=== PATIENT | female | born 1995 | race Caucasian/White ===

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

== ENCOUNTER 2018-11-27 19:34 | Emergency (ER) | payer MEDICAID, BC ==
[2018-11-27 19:46] VITALS: BP 136/93
--- NOTE | 2018-11-27 19:47 | EDM.PDOC ---
ED HPI GENERAL MEDICAL PROBLEM - General Chief Complaint: Back Pain or Injury Stated Complaint: HEADACHE/LOWER BACK Time Seen by Provider: 11/27/18 19:47 - History of Present Illness INITIAL COMMENTS - FREE TEXT/NARRATIVE: 23-year-old female presents to the emergency room with low back pain nausea hard time eating and drinking and dysuria Is been going on for the last several days she has not been vomiting but she just is quite nauseated. She has some low back discomfort but no specific abdominal pain she has no loss of bowel or bladder control. No significant abdominal pain she's tried some ibuprofen for this. Lower Back Pain Score (Numeric/FACES): 4 - Related Data Allergies Allergy/AdvReac Type Severity Reaction Status Date / Time amoxicillin Allergy Rash Verified 11/27/18 19:46 Penicillins Allergy Rash Verified 10/28/16 22:16 Home Meds: Home Meds Ondansetron [Zofran ODT] 4 mg PO Q6H PRN #6 tab.dis 11/27/18 [Rx] Past Medical History - Past Health History Medical/Surgical History: Denies Medical/Surgical History [employer] History: Reports: Social & Family History - Caffeine Use Caffeine Use: Reports: None ED ROS GENERAL - Review of Systems Review Of Systems: See Below Constitutional: Reports: Malaise, Weakness. Denies: No Symptoms, Fever, Chills HEENT: Reports: No Symptoms Respiratory: Reports: No Symptoms Cardiovascular: Reports: No Symptoms GI/Abdominal: Reports: Nausea. Denies: Constipation, Diarrhea, Vomiting : Reports: Dysuria, Flank Pain. Denies: No Symptoms Musculoskeletal: Reports: No Symptoms Skin: Reports: No Symptoms Neurological: Reports: No Symptoms Psychiatric: Reports: No Symptoms ED EXAM,LOWER BACK PAIN/INJURY - Physical Exam Exam: See Below Exam Limited By: No Limitations General Appearance: Alert, No Apparent Distress Ears: Normal External Exam, Normal Canal, Hearing Grossly Normal Nose: Normal Inspection, Normal Mucosa, No Blood Throat/Mouth: Normal Inspection, Normal Lips, Normal Teeth Head: Atraumatic, Normocephalic, Facial Swelling Neck: Normal Inspection, Supple, Non-Tender. No: Lymphadenopathy (L), Lymphadenopathy (R) Respiratory/Chest: No Respiratory Distress, Lungs Clear, Normal Breath Sounds, No Accessory Muscle Use Rectal (Female) Exam: Normal Exam Back Exam: Normal Inspection, CVA Tenderness (R) Extremities: Normal Inspection Neurological: Alert, Normal Mood/Affect Psychiatric: Normal Affect, Normal Mood Skin Exam: Warm, Dry, Intact Lymphatic: No Adenopathy Course - Vital Signs Last Recorded V/S: Last Vital Signs Temp 38.1 C 11/27/18 19:43 Pulse 144 H 11/27/18 19:43 Resp 16 11/27/18 19:43 BP 136/93 H 11/27/18 19:43 Pulse Ox 97 11/27/18 19:43 - Orders/Labs/Meds Orders: Active Orders 24 hr Category Date Time Status EKG Documentation Completion [RC] STAT Care 11/27/18 20:02 Active Lactated Ringers [Ringers, Lactated] 1,000 ml Med 11/27/18 21:19 Active IV .BOLUS Medication Orders Lactated Ringer's (Ringers, Lactated) 1,000 mls @ 999 mls/hr IV .BOLUS ONE Stop: 11/27/18 22:19 Last Admin: 11/27/18 21:26 Dose: 999 mls/hr Labs: Laboratory Tests 11/27/18 11/27/18 11/27/18 Range/Units 20:10 20:10 20:10 WBC 9.75 (3.98-10.04) K/mm3 RBC 5.02 (3.98-5.22) M/mm3 Hgb 15.6 (11.2-15.7) gm/L Hct 44.9 (34.1-44.9) % MCV 89.4 (79.4-94.8) fl MCH 31.1 (25.6-32.2) pg MCHC 34.7 (32.2-35.5) g/dl RDW Std Deviation 39.8 (36.4-46.3) fL Plt Count 188 D (182-369) K/mm3 MPV 11.0 (9.4-12.3) fl Neutrophils % (Manual) 94 H (40-60) % Band Neutrophils % 0 (0-10) % Lymphocytes % (Manual) 5 L (20-40) % Atypical Lymphs % 0 % Monocytes % (Manual) 1 L (2-10) % Eosinophils % (Manual) 0 L (0.7-5.8) % Basophils % (Manual) 0 L (0.1-1.2) Platelet Estimate Adequate RBC Morph Comment Normal Sodium 138 (136-145) mEq/L Potassium 3.5 (3.5-5.1) mEq/L Chloride 102 (98-107) mEq/L Carbon Dioxide 25 (21-32) mEq/L Anion Gap 14.5 (5-15) BUN 11 (7-18) mg/dL Creatinine 0.8 (0.55-1.02) mg/dL Est Cr Clr Drug Dosing 95.59 mL/min Estimated GFR (MDRD) > 60 (>60) mL/min BUN/Creatinine Ratio 13.8 L (14-18) Glucose 98 (74-106) mg/dL Calcium 8.7 (8.5-10.1) mg/dL TSH 3rd Generation 0.812 (0.358-3.74) uIU/mL Urine Color (Yellow) Urine Appearance (Clear) Urine pH (5.0-8.0) Ur Specific [place] (1.005-1.030) Urine Protein (Negative) Urine Glucose (UA) (Negative) Urine Ketones (Negative) Urine Occult Blood (Negative) Urine Nitrite (Negative) Urine Bilirubin (Negative) Urine Urobilinogen (0.2-1.0) Ur Leukocyte Esterase (Negative) Urine RBC (0-5) /hpf Urine WBC (0-5) /hpf Ur Squamous Epith Cells (0-5) /hpf Urine Bacteria (FEW) /hpf Urine Mucus (FEW) /hpf Urine HCG, Qual (NEGATIVE) 11/27/18 11/27/18 Range/Units 20:45 20:45 WBC (3.98-10.04) K/mm3 RBC (3.98-5.22) M/mm3 Hgb (11.2-15.7) gm/L Hct (34.1-44.9) % MCV (79.4-94.8) fl MCH (25.6-32.2) pg MCHC (32.2-35.5) g/dl RDW Std Deviation (36.4-46.3) fL Plt Count (182-369) K/mm3 MPV (9.4-12.3) fl Neutrophils % (Manual) (40-60) % Band Neutrophils % (0-10) % Lymphocytes % (Manual) (20-40) % Atypical Lymphs % % Monocytes % (Manual) (2-10) % Eosinophils % (Manual) (0.7-5.8) % Basophils % (Manual) (0.1-1.2) Platelet Estimate RBC Morph Comment Sodium (136-145) mEq/L Potassium (3.5-5.1) mEq/L Chloride (98-107) mEq/L Carbon Dioxide (21-32) mEq/L Anion Gap (5-15) BUN (7-18) mg/dL Creatinine (0.55-1.02) mg/dL Est Cr Clr Drug Dosing mL/min Estimated GFR (MDRD) (>60) mL/min BUN/Creatinine Ratio (14-18) Glucose (74-106) mg/dL Calcium (8.5-10.1) mg/dL TSH 3rd Generation (0.358-3.74) uIU/mL Urine Color Yellow (Yellow) Urine Appearance Clear (Clear) Urine pH 8.5 H (5.0-8.0) Ur Specific [place] 1.020 (1.005-1.030) Urine Protein Trace H (Negative) Urine Glucose (UA) Negative (Negative) Urine Ketones 1+ H (Negative) Urine Occult Blood Negative (Negative) Urine Nitrite Negative (Negative) Urine Bilirubin Negative (Negative) Urine Urobilinogen 1.0 (0.2-1.0) Ur Leukocyte Esterase Negative (Negative) Urine RBC 0-5 (0-5) /hpf Urine WBC 0-5 (0-5) /hpf Ur Squamous Epith Cells 5-10 H (0-5) /hpf Urine Bacteria Few (FEW) /hpf Urine Mucus Moderate H (FEW) /hpf Urine HCG, Qual Negative (NEGATIVE) Meds: Medications Generic Name Dose Route Start Last Admin Trade Name Freq PRN Reason Stop Dose Admin Lactated Ringer's 1,000 mls @ 999 mls/hr 11/27/18 21:19 11/27/18 21:26 Ringers, Lactated IV 11/27/18 22:19 999 mls/hr .BOLUS ONE Administration Discontinued Medications Generic Name Dose Route Start Last Admin Trade Name Freq PRN Reason Stop Dose Admin Acetaminophen 650 mg 11/27/18 21:21 11/27/18 21:26 Tylenol PO 11/27/18 21:22 650 mg ONETIME ONE Administration Lactated Ringer's 1,000 mls @ 999 mls/hr 11/27/18 20:01 11/27/18 20:06 Ringers, Lactated IV 11/27/18 21:01 999 mls/hr .BOLUS ONE Administration Ondansetron HCl 4 mg 11/27/18 20:01 11/27/18 20:06 Zofran IVPUSH 11/27/18 20:02 4 mg ONETIME ONE Administration - Re-Assessments/Exams Free Text/Narrative Re-Assessment/Exam: 11/27/18 21:06 KG shows a sinus tach rate 120 labs are for the most part unrevealing urinalysis does not suggest an infectious process hCG is negative she's received a liter of LR and feels much better like pain is much improved her nausea is much better with a single dose of Zofran anticipating discharge and she's done with fluids we'll discharge her with some Zofran however sustained a clear liquid diet for the next 24 hours and then slowly advance as tolerated her pulse at this time is down to about 90 11/27/18 21:33 Patient now adds she's having a lot of problems with anxiety this is a chronic condition for her and often times her pulse rate is pretty high she's been off her medications for quite some time. Offered to treat but she wants to wait and follow up with her doctor. 11/27/18 22:05 Patient continues to improve she would like to go home after this next bag of fluid is in and is almost in. Departure - Departure Time of Disposition: 22:06 Disposition: Home, Self-Care 01 Clinical Impression: Nausea, Anxiety - Discharge Information Prescriptions: Ondansetron [Zofran ODT] 4 mg PO Q6H PRN #6 tab.dis PRN Reason: Nausea Referrals: Vicky Verduzco PA-C [Primary Care Provider] - Forms: ED Department Discharge Additional Instructions: Return to the emergency room with any questions problems worsening symptoms. Clear liquid diet for the next 24 hours then slowly advance as tolerated. Follow-up with your regular physician to get back on your anxiety medications. - My Orders Last 24 Hours: My Active Orders 11/27/18 20:02 EKG Documentation Completion [RC] STAT 11/27/18 21:19 Lactated Ringers [Ringers, Lactated] 1,000 ml IV .BOLUS - Assessment/Plan Last 24 Hours: My Active Orders 11/27/18 20:02 EKG Documentation Completion [RC] STAT 11/27/18 21:19 Lactated Ringers [Ringers, Lactated] 1,000 ml IV .BOLUS
[2018-11-27] MEDS ORDERED: Ondansetron 4 MG/2 ML SDV IVPUSH ONE (20:01)
[2018-11-27] MEDS ORDERED: Lactated Ringers 1,000 ML IV ONE ×2 (20:01→21:19)
[2018-11-27] MEDS ORDERED: Acetaminophen Soln 650 MG/20.3 ML UD Cup PO ONE (21:21)
[2018-11-27] MEDS ORDERED: Ondansetron 4 MG Tab.DIS PO ONE (22:06)
== END 2018-11-27 22:35 | disposition home or self-care (01) ==
LOC: JD.ED 19:34
DX: R11.0 Nausea (principal); F41.9 Anxiety disorder, unspecified; M54.5 Low back pain; Z88.1 Allergy status to other antibiotic agents; Z88.0 Allergy status to penicillin
CPT/HCPCS: 36415; 80048; 81001; 81025; 84443; 85007; 85027; 93005; 96361; 96374; 99283; A9270; J2405; J7120; 99284